=== PATIENT | female | born 1985 | race Caucasian/White ===

== ENCOUNTER → 2022-03-21 10:32 | Outpatient (BNVA) | payer SELFPAY | PROVIDERS: Family Provider Family Medicine; Visit Provider Nurse Practitioner Family | DX: K21.9 Gastro-esophageal reflux disease without esophagitis (principal); D64.9 Anemia, unspecified; F41.9 Anxiety disorder, unspecified; F32.A Depression, unspecified; Z13.6 Encounter for screening for cardiovascular disorders; E28.2 Polycystic ovarian syndrome | CPT/HCPCS: 80053; 80061; 82306; 82607; 82746; 83036; 83550; 83735; 84439; 84443; 85025 ==

== ENCOUNTER → 2023-01-25 10:03 | Outpatient (BNVA) | payer MEDICAID, SELFPAY | PROVIDERS: Family Provider Family Medicine; Visit Provider Nurse Practitioner Family | DX: F41.9 Anxiety disorder, unspecified (principal); F32.A Depression, unspecified; Z13.6 Encounter for screening for cardiovascular disorders; E55.9 Vitamin D deficiency, unspecified; R51.9 Headache, unspecified | CPT/HCPCS: 80053; 80061; 82306; 84443 ==

== ENCOUNTER 2023-02-21 14:47 | Outpatient (CLI) | payer MEDICAID, SELFPAY ==
--- NOTE | 2023-02-21 15:15 | US_ITS ---
WS: [id number] ULTRASOUND SOFT TISSUES RIGHT neck. HISTORY: Right Sided lymphadenopathy COMPARISON: None available. TECHNIQUE: 2-D and color Doppler imaging is submitted. Ultrasound is directed along the RIGHT cervical chain in the area of concern. No lymph nodes or abnor mality identified. US/US soft tissue head neck 31739 IMPRESSION: Negative ultrasound RIGHT cervical chain.
== END 2023-02-21 14:48 | disposition home or self-care (01) ==
PROVIDERS: Family Provider Family Medicine; PCP Nurse Practitioner Family; Visit Provider Nurse Practitioner Family
DX: R59.0 Localized enlarged lymph nodes (principal); M54.2 Cervicalgia; R51.9 Headache, unspecified
CPT/HCPCS: 76536

== ENCOUNTER → 2023-03-07 11:27 | Outpatient (BNVA) | payer MEDICAID, SELFPAY | PROVIDERS: Family Provider Family Medicine; PCP Nurse Practitioner Family; Visit Provider Nurse Practitioner Family | DX: Z20.828 Contact with and (suspected) exposure to other viral communicable diseases | CPT/HCPCS: 86695; 86696 ==

== ENCOUNTER → 2023-03-21 09:41 | Outpatient (BNVA) | payer MEDICAID, SELFPAY | PROVIDERS: Family Provider Family Medicine; PCP Nurse Practitioner Family; Visit Provider Otolaryngology | DX: Z71.1 Person with feared health complaint in whom no diagnosis is made (principal); M26.623 Arthralgia of bilateral temporomandibular joint; K08.89 Other specified disorders of teeth and supporting structures | CPT/HCPCS: 99202; 99203 ==

== ENCOUNTER → 2023-07-04 11:51 | Outpatient (BNVA) | payer MEDICAID, SELFPAY | PROVIDERS: Family Provider Family Medicine; PCP Nurse Practitioner Family; Visit Provider Nurse Practitioner Family | DX: L20.9 Atopic dermatitis, unspecified; R53.83 Other fatigue; L03.90 Cellulitis, unspecified | CPT/HCPCS: 80053; 85651; 86038; 86140; 86200; 86431 ==

== ENCOUNTER → 2024-04-17 11:14 | Outpatient (BNVA) | payer MEDICAID, SELFPAY | PROVIDERS: Family Provider Family Medicine; PCP Nurse Practitioner Family; Visit Provider Nurse Practitioner Family | DX: E66.9 Obesity, unspecified (principal); F41.9 Anxiety disorder, unspecified; F32.A Depression, unspecified; F43.10 Post-traumatic stress disorder, unspecified; E55.9 Vitamin D deficiency, unspecified; Z30.42 Encounter for surveillance of injectable contraceptive; E66.09 Other obesity due to excess calories; Z68.37 Body mass index [BMI] 37.0-37.9, adult | CPT/HCPCS: 80053; 80061; 84443; 85025 ==

== ENCOUNTER 2024-05-24 06:28 | Outpatient (CLI) | payer MEDICAID, SELFPAY ==
--- NOTE | 2024-05-24 06:45 | USR_ITS ---
PROCEDURE INFORMATION: Exam: US Abdomen; Limited Exam date and time: 05/24/2024 6:38 AM Age: 38 years old Clinical indication: Condition or disease; Complications not specified; Hernia not specified TECHNIQUE: Imaging protocol: Real time ultrasound of the abdomen with image documentation. Limited exam focused on the region of clinical interest. COMPARISON: US transvaginal [id number] 01/30/2019 3:29 PM FINDINGS: Lymph nodes: Focused ultrasound examination of the right upper quadrant/area of clinical concern, demonstrates no evidence of hernia, mass, cyst, fluid collection, or lymphadenopathy. US/US abdomen limited [id number] IMPRESSION: No acute findings.
== END 2024-05-24 06:29 | disposition home or self-care (01) ==
LOC: RAD 06:29
PROVIDERS: PCP Nurse Practitioner Family; Visit Provider Nurse Practitioner Family
DX: K46.9 Unspecified abdominal hernia without obstruction or gangrene (principal)
CPT/HCPCS: 76705; 99204

== ENCOUNTER 2024-06-03 12:54 | Outpatient (CLI) | payer MEDICAID, SELFPAY ==
[2024-06-03] MEDS: iohexol 350 mg/mL 500 mL Btl (per mL) PO (13:10)
--- NOTE | 2024-06-03 14:00 | CT_ITS ---
WS: [id number] CT ABDOMEN AND PELVIS WITH CONTRAST HISTORY: ventral hernia TECHNIQUE: Imaging performed of the abdomen and pelvis with IV contrast. Single phase imaging of the abdomen. Coronal and sagittal reformats are submitted. All CT scans at [facility] use at [facility] one of these dose optimization techniques: automated exposure control; mA and/or kV adjustment per patient size (includes targeted exams where dose is matched to clinical indication); or iterative re construction. IV CONTRAST: Omnipaque 350; 100 mL IV. Oral contrast: Yes. DLP: 833.77 mGy.cm COMPARISON: None available. Lower thorax: Lung bases are clear. Heart is normal size. No hiatal hernia. Liver/biliary system: Normal size with no intrahepatic dilatation. Gallbladder: Prior cholecystectomy. Normal common bile duct. Pancreas: Normal size pancreas and pancreatic duct. No adjacent inflammation. Spleen: Normal size spleen. No mass or infarct. Adrenal glands: Normal. Right kidney: Normal. Left kidney: Normal. Aorta: Normal. Lymphadenopathy: None. Free fluid: None. GI tract: Unremarkable. Normal appendix. No obstruction. Abdominal wall: Ventral abdominal wall hernia at the umbilicus with a maximum diameter of 1.3 cm. Mil d diastases recti. Pelvis: No free fluid or adenopathy within the pelvis. Normal midline uterus. No adnexal mass. Bones: Unremarkable. CT/CT abdomen pelvis w con* [id number] IMPRESSION: 1. Ventral umbilical hernia with a maximal diameter of 1.3 cm contains fat onl y. 2. Prior cholecystectomy. 3. No ascites or adenopathy.
[2024-06-03] MEDS: iohexol 350 mg/mL 500 mL Btl (per mL) IV (14:03)
== END 2024-06-03 12:55 | disposition home or self-care (01) ==
LOC: RAD 12:56
PROVIDERS: PCP Nurse Practitioner Family; Visit Provider Surgery
DX: K43.9 Ventral hernia without obstruction or gangrene (principal); Z90.49 Acquired absence of other specified parts of digestive tract
CPT/HCPCS: 74177; Q9967

== ENCOUNTER → 2024-07-24 09:03 | Outpatient (BNVA) | payer OTHER, SELFPAY | PROVIDERS: PCP Nurse Practitioner Family; Visit Provider Nurse Practitioner Family | DX: F41.9 Anxiety disorder, unspecified (principal); F32.A Depression, unspecified; E66.09 Other obesity due to excess calories; F43.10 Post-traumatic stress disorder, unspecified; Z68.37 Body mass index [BMI] 37.0-37.9, adult; E55.9 Vitamin D deficiency, unspecified | CPT/HCPCS: 80053; 80061; 84443; 85025 ==

== ENCOUNTER → 2025-04-02 11:11 | Outpatient (BNVA) | payer MEDICAID, SELFPAY | PROVIDERS: PCP Nurse Practitioner Family; Visit Provider Nurse Practitioner Family | DX: Z30.42 Encounter for surveillance of injectable contraceptive (principal); F41.9 Anxiety disorder, unspecified | CPT/HCPCS: 80053; 80061; 81025; 82306; 84443; 85025 ==